=== PATIENT | female | born 1985 | race Caucasian/White ===

== ENCOUNTER 2019-07-10 11:06 | Emergency (ER) | payer OTHER ==
[~2019-07-10] VITALS: Ht 170.2 cm; Wt 99.5 kg
[2019-07-10 11:06] VITALS: BP 130/78
--- NOTE | 2019-07-10 11:19 | PHYS DOC ---
Past History Past Medical History: No Pertinent History Past Surgical History: No Surgical History Smoking: Non-smoker Alcohol Use: None Drug Use: None Adult General Chief Complaint Chief Complaint: Fall in HPI HPI Patient is a 34-year-old female that is 18 weeks who presents to the emergency department following a fall that occurred yesterday. She states that [place] she [place] and fell backwards onto her buttocks. Patient denies hitting her head, denies loss of consciousness, denies hitting her stomach, and also denies having any pain currently in the ED. She reports that she was anxious regarding the fall and her current . Patient den ies any vaginal bleeding or discharge, denies abdominal pain. Denies other complaint. Patient reports she just wants to be checked to make sure everything is ok. Reports history of miscarriages. Review of Systems Review of Systems Constitutional: Denies fever or chills Eyes: Denies redness or eye pain HENT: Denies nasal congestion or sore throat Respiratory: Denies cough or shortness of breath Cardiovascular: Denies chest pain or palpitations GI: Denies abdominal pain, nausea, or vomiting /[employer]: Denies dysuria or hematuria; denies vaginal bleeding or discharge; reports Musculoskeletal: Denies back pain or joint pain Integument: Denies rash or skin lesions Neurologic: Denies headache, focal weakness or sensory changes Complete systems were reviewed and found to be within normal limits, except as documented in this note. Physical Exam Physical Exam Constitutional: Well developed, well nourished, no acute distress, non-toxic appearance HENT: Normocephalic, atraumatic, oropharynx moist Eyes: PERRL, EOMI, conjunctiva normal, no discharge Neck: Normal range of motion, no tenderness, supple Cardiovascular: Heart rate normal, regular rhythm Lungs & Thorax: Bilateral breath sounds clear to auscultation, no wheezing Abdomen: Soft, no tenderness Skin: Warm, dry, no erythema, no rash Back: No tenderness, no CVA tenderness Extremities: No tenderness, ROM intact, no edema Neurologic: Alert and oriented X 3, normal motor function, normal sensory function, no focal deficits noted Psychologic: Affect normal, judgement normal EKG EKG [] Radiology/Procedures Radiology/Procedures [] Course & Med Decision Making Course & Med Decision Making 18 weeks patient presents following a fall yesterday. Patient denies hitting her belly, hitting her head, loss of consciousness, or vaginal bleeding. Patient states she just anxious regarding the fall and her current . heart tones in the ED were 158 bpm. Patient neurologically intact. No abdominal pain. Symptoms discussion with patient regarding reassurance and to follow-up with PCP/OB. She was understanding and agreeable with plan. Patient stable for discharge with outpatient follow-up with PCP/OB. Discussed findings and plan with patient, who acknowledges understanding and agreement. Dragon Disclaimer Dragon Disclaimer This electronic medical record was generated, in whole or in part, using a voice recognition dictation system. Departure Departure: Impression: Primary Impression: Fall Additional Impression: Disposition: 01 HOME, SELF-CARE Condition: STABLE Referrals: DOMINIQUE WAY PA-C (PCP) Patient Instructions: ABCs of , Fall Prevention and Home Safety, [id number] Problem Qualifiers Primary Impression: Fall Encounter type: initial encounter Qualified Codes: W19.XXXA - Unspecified fall, initial encounter Additional Impression: Weeks of gestation: 18 weeks Qualified Codes: Z3A.18 - 18 weeks gestation of PHILIP OBREGON DO Jul 10, 2019 11:19
== END 2019-07-10 11:22 | disposition home or self-care (01) ==
LOC: ER 11:06
DX: O9A.212 Injury, poisoning and certain other consequences of external causes complicating pregnancy, second trimester (principal); Z3A.18 18 weeks gestation of pregnancy; W01.0XXA Fall on same level from slipping, tripping and stumbling without subsequent striking against object, initial encounter; Y93.89 Activity, other specified; Y92.89 Other specified places as the place of occurrence of the external cause; Y99.8 Other external cause status
CPT/HCPCS: 99281